=== PATIENT | female | born 1980 | race Caucasian/White ===

== ENCOUNTER → 2017-07-13 | Outpatient (CLI) | payer OTHER ==
--- NOTE | 2017-07-13 17:37 | Diagnostic Imaging Report ---
INDICATION: Back pain. AP, lateral, and coned-down views of the lumbar spine are obtained. FINDINGS: The lumbar vertebrae appear normal in height and alignment. No fracture or subluxation is seen. Disc spaces are unremarkable. IMPRESSION: Unremarkable lumbar spine series. Dictated by: Dictated on workstation # [id number]
== END ==
LOC: RAD 17:17
PROVIDERS: ATTEND Family Medicine
DX: M54.9 Dorsalgia, unspecified (principal)
CPT/HCPCS: 72100

== ENCOUNTER → 2018-01-27 | Outpatient (CLI) | payer OTHER ==
--- NOTE | 2018-01-27 13:56 | Diagnostic Imaging Report ---
PROCEDURE: CT sinuses without contrast TECHNIQUE: Multiple contiguous axial images were obtained through the sinuses without the use of intravenous contrast. Coronal and sagittal reformations were then performed. INDICATION: Chronic sinusitis. No prior studies are available for comparison. The frontal sinuses clear. Ethmoid air cells and sphenoid sinus are clear apart from trace fluid in the sphenoid. Bilateral maxillary sinuses are clear. No air-fluid levels are seen. Mastoids are well aerated. Ostiomeatal complexes appear to be patent. There is slight nasal septal deviation to the left. There are bilateral maria del rosario bullosa present. IMPRESSION: Trace fluid in the sphenoid sinus. The study is otherwise unremarkable. Dictated by: Dictated on workstation # [id number]
== END ==
LOC: RAD 12:59
PROVIDERS: ATTEND Otolaryngology Otolaryngology/Facial Plastic Surgery
DX: J32.9 Chronic sinusitis, unspecified (principal)
CPT/HCPCS: 70486

== ENCOUNTER → 2020-07-26 | Outpatient (CLI) | payer OTHER ==
[2020-07-26 08:43] LABS: HEMOGLOBIN 11.8 g/dL (11.5-16.0); MEAN PLATELET VOLUME 10.1 fL (9.0-12.2); WHITE BLOOD COUNT 4.4 10^3/uL (4.3-11.0)
[2020-07-26 09:01] LABS: BUN/CREATININE RATIO 15; CALCIUM 8.3 MG/DL (8.5-10.1); CARBON DIOXIDE 20 MMOL/L (21-32); CHLORIDE 112 MMOL/L (98-107); CHOLESTEROL 179 MG/DL (< 200); CREATININE SERUM 0.82 MG/DL (0.60-1.30); GFR ESTIMATED > 60; GLUCOSE 87 MG/DL (70-105); HDL CHOLESTEROL 57 MG/DL (40-60); SODIUM 140 MMOL/L (135-145); TRIGLYCERIDES 34 MG/DL (<150); VLDL CHOLESTEROL 7 MG/DL (5-40)
== END ==
LOC: LAB 08:26
PROVIDERS: ATTEND Family Medicine
DX: Z00.00 Encounter for general adult medical examination without abnormal findings (principal); R04.0 Epistaxis
CPT/HCPCS: 36415; 80048; 80061; 84443; 85027

== ENCOUNTER 2020-10-12 07:56 | Outpatient (RCR) | payer OTHER | END 2020-10-24 | disposition home or self-care (01) | PROVIDERS: ATTEND Family Medicine | DX: M25.552 Pain in left hip (principal); M54.5 Low back pain ==

== ENCOUNTER 2020-12-27 08:02 | Outpatient (RCR) | payer OTHER | END 2020-12-27 09:45 | disposition home or self-care (01) | PROVIDERS: ATTEND Family Medicine | DX: M25.552 Pain in left hip (principal); M54.5 Low back pain ==

== ENCOUNTER 2022-02-16 16:07 | Emergency (ER) | payer OTHER ==
[~2022-02-16] VITALS: Ht 162 cm; Wt 59.0 kg
--- NOTE | 2022-02-16 16:27 | ED Integumentary General ---
General Chief Complaint: Laceration Stated Complaint: L FOOT LAC Source: patient Exam Limitations: no limitations History of Present Illness Date Seen by Provider: Feb 16, 2022 Time Seen by Provider: 16:20 Timing/Duration: just prior to arrival Severity: mild Location: extremities (left ankle) Possible Cause: other (cut on radha horse feeder) Associated Symptoms: denies symptoms Allergies and Home Medications Allergies Coded Allergies: No Known Drug Allergies (Unverified , 02/16/22) Patient Home Medication List Home Medication List Reviewed: Yes Review of Systems Review of Systems Constitutional: see HPI Respiratory: no symptoms reported Cardiovascular: no symptoms reported Gastrointestinal: no symptoms reported Skin: other (laceration) All Other Systems Reviewed Negative Unless Noted: Yes Physical Exam Vital Signs Vital Signs - First Documented 02/16/22 16:22 Temp 36.6 Pulse 103 Resp 20 B/P (MAP) 122/82 (95) Pulse Ox 98 O2 Delivery Room Air Capillary Refill : General Appearance: WD/WN, no apparent distress Cardiovascular: regular rate, rhythm Respiratory: no respiratory distress, no accessory muscle use Extremities: normal range of motion, non-tender, normal inspection, no pedal edema, no calf tenderness, normal capillary refill Skin: normal color, warm/dry, other (Superficial laceration approximately 5 cm in length just over the anterior ankle. No active bleeding. No bony tenderness to the ankle joint) Procedures/Interventions Wound Location: Lower Extremities Other Wound Location left anterior ankle Wound Length (cm): 5 Wound's Depth, Shape: superficial, linear Wound Explored: clean Irrigated w/ Saline (ccs): 250 Betadine Prep?: No Anesthesia: Lidocaine w/ Epi Volume Anesthetic (ccs): 4 Suture: Ethlion Suture Size: 4-0 Number of Sutures: 9 Layer Closure?: 1 Number Deep Layer Sutures: 0 Sterile Dressing Applied?: Yes Progress/Results/Core Measures Results/Orders My Orders Orders - MICHELLE MONCADA MD Dipht,Pertuss(Acell),Tet Adult (Boostrix (02/16/22 16:30) Medications Given in ED Current Medications Medications Dose Ordered Sig/Jameson Route Start Time Stop Time Status Last Admin Dose Admin Diphtheria/ Tetanus/Acell Pertussis 0.5 ml ONCE ONCE IM 02/16/22 16:30 02/16/22 16:31 DC 02/16/22 16:40 0.5 ML Vital Signs/I&O 8/21/22 16:22 Temp 36.6 Pulse 103 Resp 20 B/P (MAP) 122/82 (95) Pulse Ox 98 O2 Delivery Room Air Departure Impression Primary Impression: Laceration of left ankle Qualified Codes: S91.012A - Laceration without foreign body, left ankle, initial encounter Disposition: HOME, SELF-CARE Condition: Stable Departure-Patient Inst. Decision time for Depature: 16:26 Referrals: DENISE VILLA MD (PCP/Family) Primary Care Physician Patient Instructions: Laceration Repair With Stitches ED Add. Discharge Instructions: Keep the wound clean dry and covered for the next 48 hours. You can wash gently with soap and water and apply a little triple antibiotic ointment twice daily. After a couple of days you can leave the stitches open to air. The stitches need to come out in 12 to 14 days. Return to the emergency room to have the stitches out as it is part of this visit. Also return if the wound becomes red, hot, swollen or drains pus. We have updated your tetanus shot today. MICHELLE MONCADA MD Feb 16, 2022 16:27
[2022-02-16] MEDS ORDERED: TETANUS,DIPTH,PERTUSS P/F (BOOSTRIX) 0.5 ML VIAL IM ONE (16:30)
[2022-02-16 17:17] VITALS: BP 122/82
== END 2022-02-16 17:17 | disposition home or self-care (01) ==
LOC: EDUNIT# 16:07 → ER 16:09
DX: S91.012A Laceration without foreign body, left ankle, initial encounter (principal); Z23 Encounter for immunization; W26.8XXA Contact with other sharp object(s), not elsewhere classified, initial encounter
CPT/HCPCS: 12002; 90715